=== PATIENT | male | born 1995 | race Two or more races ===

== ENCOUNTER 2020-03-30 06:57 | Emergency (ER) | payer OTHER ==
[~2020-03-30] VITALS: Ht 172.7 cm; Wt 94.0 kg
[2020-03-30 07:15] VITALS: BP 128/76
--- NOTE | 2020-03-30 07:16 | PHYS DOC ---
General Adult EDM: Chief Complaint: ANIMAL BITE HPI: HPI: The history was obtained from the patient. Patient is a 24-year-old male with no reported PMH who presents with a chief complaint of dog bite to the right forearm. Patient states approximate 12 hours prior to arrival his own dog bit him on the right forearm in 2 locations. He states he has noted 2 puncture wounds to the proximal dorsal aspect of the right forearm. He does note some swelling to that distal wrist. He states it is somewhat painful when he abducts and adducts his thumb. He is right-handed. He denies any drainage from the wounds. He denies any fevers. He states the dog is up-to-date on his vaccines. He states he is unsure when his last tetanus was. He denies any elbow pain. He denies any pain with pronation and supination. Denies numbness or tingling. No other complaints. Review of Systems: Review of Systems: Constitutional: Denies fever or chills Eyes: Denies change in visual acuity HENT: Denies nasal congestion or sore throat Respiratory: Denies cough or shortness of breath Cardiovascular: Denies chest pain or edema GI: Denies abdominal pain, nausea, vomiting, bloody stools or diarrhea : Denies dysuria Musculoskeletal: Positive for right forearm pain Integument: Positive for puncture wound Neurologic: Denies headache, focal weakness or sensory changes Endocrine: Denies polyuria or polydipsia Lymphatic: Denies swollen glands Psychiatric: Denies depression or anxiety Heart Score: Risk Factors: Risk Factors: DM, Current or recent (<one month) smoker, HTN, HLP, family history of CAD, obesity. Risk Scores: Score 0 - 3: 2.5% MACE over next 6 weeks - Discharge Home Score 4 - 6: 20.3% MACE over next 6 weeks - Admit for Clinical Observation Score 7 - 10: 72.7% MACE over next 6 weeks - Early Invasive Strategies Allergies: Allergies: Allergies Coded Allergies Type Severity Reaction Last Updated Verified No Known Drug Allergies 03/30/20 No Physical Exam: PE: Constitutional: Well developed, well nourished, no acute distress, non-toxic appearance. [] HENT: Normocephalic, atraumatic, bilateral external ears normal, oropharynx moist, no oral exudates, nose normal. [] Eyes: PERRLA, EOMI, conjunctiva normal, no discharge. [] Neck: Normal range of motion, no tenderness, supple, no stridor. [] Cardiovascular:Heart rate regular rhythm, no murmur [] Lungs & Thorax: Bilateral breath sounds clear to auscultation [] Abdomen: soft, no tenderness, no masses, no pulsatile masses. [] Skin: Warm, dry, no erythema, no rash. [] Back: No tenderness, no CVA tenderness. [] Extremities: R HAND/WRIST: Tenderness to palpation present at the distal wrist. Overlying swelling more pronounced on the dorsal aspect of the right wrist.. Anatomic snuffbox without tenderness to palpation. Joints exhibit active range of motion without ligamentous laxity or instability. All tendons tested actively and against resistance without laxity. Subungual hematomas and nail injuries are absent. Radial pulse is present; +2/4. Capillary refill is less than 2 seconds. Sensation is intact in the median, ulnar and radial nerve distributions. Strength is intact in the median, ulnar and radial nerve distributions. Cyanosis, erythema, and pallor are absent. Two 0.5 cm puncture wounds noted to the proximal dorsal aspect of the right forearm. None gaping. No active drainage noted. Neurologic: Alert and oriented X 3, normal motor function, normal sensory function, no focal deficits noted. [] Psychologic: Affect normal, judgement normal, mood normal. [] EKG: EKG: [] Radiology/Procedures: Radiology/Procedures: [address] [address] IMAGING REPORT Signed PATIENT: KATIE ESPINAL LACCOUNT: [id number] : 1995 LOCATION: ER AGE: 24 SEX: M EXAM STATUS: REG ER ORD. PHYSICIAN: JERE AGARWAL DO REASON: dog bite injury - on lateral aspect PROCEDURE: FOREARM RIGHT 2 views right forearm dated 03/30/2020. No comparison available. CLINICAL INDICATION: Pain after injury. Dog bite. FINDINGS: 2 views of the right forearm show normal bony alignment. No displaced fracture. No periostitis or bone destruction. No acute osseous or articular abnormality. No radiopaque foreign body. IMPRESSION: No acute radiographic abnormality. Electronically signed by: Reynaldo Ervin MD (03/30/2020 7:33 AM) [id number] DICTATED AND SIGNED BY: REYNALDO ERVIN MD DATE: 03/30/20 0733 CC: PCP,CASSIE; JERE AGARWAL DO ~ [] Course & Med Decision Making: Course & Med Decision Making Pertinent Labs and Imaging studies reviewed. (See chart for details) Patient is a well-appearing 24-year-old male who presents with chief complaint of dog bite to the right forearm. His greatest concern is evaluation for fracture. Initial vital signs unremarkable. Physical exam noted above. Plain film imaging reveals no fracture on my interpretation. Given the chronicity of the wounds in nature of the dog bite closure will not be performed today. He will be given a course of Augmentin. Tetanus was updated. Return precautions discussed and understood. Instructed to follow-up with his primary care physician in the next 3 to 5 days. Stable for discharge home. Dragon Disclaimer: Ponce Disclaimer: This electronic medical record was generated, in whole or in part, using a voice recognition dictation system. Departure Departure: Disposition: 01 HOME/RESIDENCE PRIOR TO ADM Condition: STABLE Referrals: PCP,CASSIE (PCP) Patient Instructions: Animal Bite Additional Instructions: Please follow-up with your primary care physician in the next 3 to 5 days. Scripts Amoxicillin/Potassium Clav (AUGMENTIN 875-125 TABLET) 1 Each Tablet 1 TAB PO BID for dog bite for 10 Days, #20 TAB 0 Refills Prov: JERE AGARWAL DO 03/30/20 Justification of Admission: Justification of Admission: Justification of Admission Dx: N/A JERE AGARWAL DO Mar 30, 2020 07:16
[2020-03-30] MEDS ORDERED: AMOX1TAB61 PO (07:33)
--- NOTE | 2020-03-30 07:35 | RAD ---
2 views right forearm dated 03/30/2020. No comparison available. CLINICAL INDICATION: Pain after injury. Dog bite. FINDINGS: 2 views of the right forearm show normal bony alignment. No displaced fracture. No periostitis or bone destruction. No acute osseous or articular abnormality. No radiopaque foreign body. IMPRESSION: No acute radiographic abnormality. Electronically signed by: Reynaldo Ervin MD (03/30/2020 7:33 AM) [id number]
[2020-03-30] MEDS ORDERED: DIPH,PERTUSS(ACELL),TET VAC/PF 0.5 ML SYRINGE. VAX IM ONE (07:45)
== END 2020-03-30 07:39 | disposition home or self-care (01) ==
LOC: ER 06:57
DX: S51.831A Puncture wound without foreign body of right forearm, initial encounter (principal); W54.0XXA Bitten by dog, initial encounter; Y93.89 Activity, other specified; Y92.89 Other specified places as the place of occurrence of the external cause; Y99.8 Other external cause status
CPT/HCPCS: 73090; 99283